=== PATIENT | male | born 1955 | race Two or more races ===

== ENCOUNTER 2020-05-25 10:57 | Emergency (ER) | payer MEDICAID, OTHER ==
[~2020-05-25] VITALS: Ht 170.2 cm; Wt 81.6 kg
[2020-05-25] MEDS ORDERED: SODIUM CHLORIDE 0.9% 2,000 ML IV ONE (11:30)
[2020-05-25 11:45] LABS: Basophils # (auto) 0.1 10 ^3/uL (0-0.2); Basophils % (auto) 0.3 % (0.0-2.0); Eosinophils # (auto) 0 10 ^3/uL (0-0.8); Hematocrit 35.1 % (41.0-53.0); Hemoglobin 11.4 g/dL (13.5-17.5); Lymphocytes # (auto) 0.3 10 ^3/uL (0.4-5.4); Lymphocytes % (auto) 1.4 % (10.0-50.0); Mean Corpuscular Hemoglobin 28.1 pg (28.0-32.0); Mean Corpuscular Hgb Conc. 32.6 g/dL (32.0-36.0); Mean Corpuscular Volume 86.1 fL (80.0-100.0); Monocytes # (auto) 0.4 10 ^3/uL (0-1.3); Neutrophils # (auto) 19.1 10 ^3/uL (1.6-8.6); Neutrophils % (auto) 96.3 % (37.0-80.0); Platelet Count (auto) 275 10^3/uL (140-450); Red Blood Cells 4.07 10^6/uL (4.5-5.90); Red Cell Distribution Width 17.4 % (11.8-14.3); White Blood Cell 19.8 10^3/uL (4.4-10.8)
[2020-05-25 12:04] LABS: INR 1.06 (0.9-1.15); Partial Thromboplastin Time 25.9 sec (23.0-31.2)
[2020-05-25 12:06] LABS: Alanine Aminotransferase 19 U/L (16-61); Albumin 1.5 g/dL (3.4-5.0); Amylase 10 U/L (25-115); Anion Gap 16 (5-15); Aspartate Aminotransferase 16 U/L (15-37); BUN/Creatinine Ratio 34.1; Blood Urea Nitrogen 61 mg/dL (7-18); Calcium 7.3 mg/dL (8.5-10.1); Carbon Dioxide 22 mmol/L (21-32); Chloride 82 mmol/L (98-107); GFR African American 50 mL/min; GFR Non-African American 41 mL/min; Lipase 99 U/L (73-393); Magnesium 2.5 mg/dL (1.6-2.6); Potassium 5.3 mmol/L (3.5-5.1); Sodium 120 mmol/L (136-145)
[2020-05-25 12:14] LABS: Alkaline Phosphatase 185 U/L (45-117); Bilirubin, Total 1.6 mg/dL (0.2-1.0); Total Protein 5.8 g/dL (6.4-8.2)
[2020-05-25] MEDS ORDERED: SODIUM CHLORIDE 0.9% 1,000 ML IVB ONE (12:45)
[2020-05-25 13:10] LABS: Glucose 672 mg/dL (74-106)
[2020-05-25] MEDS ORDERED: SODIUM CHLORIDE 0.9% 1,000 ML IV ONE (13:45)
[2020-05-25] MEDS ORDERED: VANCOMYCIN PER PHARMACY 0 MG IV SCH (13:45)
[2020-05-25] MEDS ORDERED: DEXTROSE (50%) 50ML SYRG IV PRN (13:45)
[2020-05-25] MEDS ORDERED: InsuLIN R (HUMAN) 100 UNITS in SODIUM CHL 0.9% 99 ML IV SCH (13:45)
[2020-05-25] MEDS ORDERED: PIPERACILLIN-TAZO 4.5GM 100 ML IV ONE (13:45)
[2020-05-25] MEDS: SODIUM CHLORIDE 0.9% 1,000 ML IV SCH ×4 (14:15→15:31)
[2020-05-25] MEDS ORDERED: ACCU-CHEK COMFORT CURVE STRIP VI SCH (15:00)
[2020-05-25 15:12] LABS: BUN/Creatinine Ratio 38.3; Calcium 7.2 mg/dL (8.5-10.1)
[2020-05-25 16:15] VITALS: BP 139/85
[2020-05-25] MEDS ORDERED: InsuLIN REG 1unit/0.01ml Soln (100units/ml) SC ONE (16:30)
[2020-05-25] MEDS ORDERED: VANCOMYCIN 1GM/250ML 250 ML IV ONE (17:00)
[2020-05-25] MEDS ORDERED: SODIUM CHLORIDE 0.9% 1,000 ML IV SCH ×2 (17:45→19:45)
== END 2020-05-25 16:42 | disposition home or self-care (01) ==
LOC: ER 10:57
DX: G06.2 Extradural and subdural abscess, unspecified (principal); E11.10 Type 2 diabetes mellitus with ketoacidosis without coma; I12.9 Hypertensive chronic kidney disease with stage 1 through stage 4 chronic kidney disease, or unspecified chronic kidney disease; A41.9 Sepsis, unspecified organism; N17.9 Acute kidney failure, unspecified; Z20.822 Contact with and (suspected) exposure to COVID-19
CPT/HCPCS: 36415; 36600; 71045; 74176; 80048; 80053; 82010; 82150; 82805; 82962; 83036; 83605; 83690; 83735; 84484; 85025; 85610; 85730; 87040; 87077; 87186; 87426; 93005; 96361; 96365; 96372; 99291; J1815; J2543; J7030